=== PATIENT | male | born 1995 | race Caucasian/White ===

== ENCOUNTER 2018-01-13 21:20 | Emergency (ER) | payer OTHER ==
[2018-01-13 21:45] LABS: PLATELET COUNT 302 10^3/uL (150-400)
[2018-01-13] MEDS ORDERED: KETOROLAC 30 MG/1 ML SDV IVP ONE (21:53)
[2018-01-13] MEDS ORDERED: NS 1,000 ML IV ONE (21:53)
[2018-01-13] MEDS ORDERED: ONDANSETRON 4 MG/2 ML VIAL IVP ONE (21:53)
[2018-01-13] MEDS ORDERED: HYDROmorphONE/DILAUDID 2 MG/ML INJ IVP ONE (21:53)
--- NOTE | 2018-01-13 21:57 | EDPHY ---
H & P Stated Complaint: kidney stones l flank pain Time Seen by Provider: 01/13/18 21:49 HPI/ROS: CHIEF COMPLAINT: Left flank pain HISTORY OF PRESENT ILLNESS: Patient is a 22-year-old man with known kidney stones. He passed a kidney stone in November and followed up with [facility]. They did a CT scan at that time he told me had another stone on his left side that had not yet passed. About 2 hr ago he began experiencing significant left flank pain radiating to his groin. He states that this feels exactly similar to his previous kidney stone accept the other side. No fevers. No vomiting but has been slightly nauseous. No diarrhea. No rash. No testicular pain. No discharge. No urinary symptoms. REVIEW OF SYSTEMS: Constitutional: denies: chills, fever, recent illness, recent injury EENTM: denies: blurred vision, double vision, nose congestion Respiratory: denies: cough, shortness of breath Cardiac: denies: chest pain, irregular heart rate, lightheadedness, palpitations Gastrointestinal/Abdominal: denies: abdominal pain, diarrhea, nausea, vomiting, blood streaked stools Genitourinary: See HPI Musculoskeletal: denies: joint pain, muscle pain Skin: denies: lesions, rash, jaundice, bruising Neurological: denies: headache, numbness, paresthesia, tingling, dizziness, weakness Hematologic/Lymphatic: denies: blood clots, easy bleeding, easy bruising Immunologic/allergic: denies: HIV/AIDS, transplant EXAM: GENERAL: Well-appearing, well-nourished and in no acute distress. HEAD: Atraumatic, normocephalic. EYES: Pupils equal round and reactive to light, extraocular movements intact, sclera anicteric, conjunctiva are normal. ENT: TMs normal, nares patent, oropharynx clear without exudates. Moist mucous membranes. NECK: Normal range of motion, supple without lymphadenopathy or JVD. LUNGS: Breath sounds clear to auscultation bilaterally and equal. No wheezes rales or rhonchi. HEART: Regular rate and rhythm without murmurs, rubs or gallops. ABDOMEN: Soft, nontender, normoactive bowel sounds. No guarding, no rebound. No masses appreciated. BACK: Left CVA pain, no tenderness, no spinal tenderness, step-offs or deformities EXTREMITIES: Normal range of motion, no pitting or edema. No clubbing or cyanosis. NEUROLOGICAL: Cranial nerves II through XII grossly intact. Normal speech, normal gait. 5/5 strength, normal movement in all extremities, normal sensation PSYCH: Normal mood, normal affect. SKIN: Warm, dry, normal turgor, no visible rashes or lesions. Source: Patient Exam Limitations: No limitations - Personal History Current Tetanus/Diphtheria Vaccine: Yes Current Tetanus Diphtheria and Acellular Pertussis (TDAP): Yes - Medical/Surgical History Hx Asthma: No Hx Chronic Respiratory Disease: No Hx Diabetes: No Hx Cardiac Disease: No Hx Renal Disease: No Hx Cirrhosis: No Hx Alcoholism: No Hx HIV/AIDS: No Hx Splenectomy or Spleen Trauma: No Other PMH: kidney stones - Family History Significant Family History: No pertinent family hx - Social History Smoking Status: Current some day smoker Alcohol Use: Sober Drug Use: None Constitutional: Initial Vital Signs Temperature (C) 36.4 C 01/13/18 21:22 Heart Rate 86 01/13/18 21:22 Respiratory Rate 20 01/13/18 21:22 Blood Pressure 119/83 H 01/13/18 21:22 O2 Sat (%) 100 01/13/18 21:22 O2 Delivery Mode Room Air Allergies/Adverse Reactions: No Known Allergies Allergy (Unverified 01/13/18 21:21) Home Medications: Medication Instructions Recorded Hydrocodone/APAP 5/325 [Sanford 1 - 2 tab PO Q4H PRN #10 tab 01/13/18 5/325] Ketorolac Tromethamine 10 mg PO Q6H PRN #16 tab 01/13/18 Lexapro 01/13/18 Ondansetron Odt [Zofran Odt 4 mg 4 mg PO Q4 PRN #20 tab 01/13/18 (RX)] Tamsulosin HCl [Flomax] 0.4 mg PO DAILY #10 cap 01/13/18 Medical Decision Making ED Course/Re-evaluation: 10:35 p.m. the patient refuses pain medication. He thinks that his stone has passed. He is able to urinate. He is eager to go home. I will give him a take -home medications in case his pain returns. He will follow up with Urology in the next few days. Differential Diagnosis: Partial list of the Differential diagnosis considered include but were not limited to; kidney stone, urinary tract infection and although unlikely based on the history and physical exam, I also considered dissection, aneurysm, abscess, diverticulitis. I discussed these differential diagnoses and the plan with the patient as well as the usual and expected course. The patient understands that the diagnosis is provisional and that in medicine we are not always correct and that further workup is often warranted. Usual and customary warnings were given. All of the patient's questions were answered. The patient was instructed to return to the emergency department should the symptoms at all worsen or return, otherwise to followup with the physician as we discussed. - Data Points Laboratory Results: Laboratory Results 01/13/18 21:35 01/13/18 21:35 Medications Given: Discontinued Medications Hydrocodone Bitart/Acetaminophen (Sanford 5/325mg Prepack#6) 1 btl TAKEHOME EDNOW ONE Stop: 01/13/18 22:41 Last Admin: 01/13/18 22:51 Dose: 1 btl Hydromorphone HCl (Dilaudid) 0.5 mg IVP EDNOW ONE Stop: 01/13/18 21:54 Last Admin: 01/13/18 22:01 Dose: Not Given Sodium Chloride (Ns) 1,000 mls @ 0 mls/hr IV EDNOW ONE; Wide Open PRN Reason: Protocol Stop: 01/13/18 21:54 Last Admin: 01/13/18 21:58 Dose: 1,000 mls Ketorolac Tromethamine (Toradol) 15 mg IVP EDNOW ONE Stop: 01/13/18 21:54 Last Admin: 01/13/18 21:59 Dose: 15 mg Ondansetron HCl (Zofran) 4 mg IVP EDNOW ONE Stop: 01/13/18 21:54 Last Admin: 01/13/18 21:59 Dose: 4 mg Ondansetron HCl (Zofran Odt 4 Mg Prepack#2) 1 btl TAKEHOME EDNOW ONE Stop: 01/13/18 22:41 Last Admin: 01/13/18 22:50 Dose: 1 btl Departure - Departure Disposition: Home, Routine, Self-Care Clinical Impression: Calculus of left kidney Condition: Fair Instructions: Hydrocodone/Acetaminophen (By mouth), Ondansetron (By mouth), Kidney Stones (ED) Referrals: NONE *PRIMARY CARE P,. [Primary Care Provider] - As per Instructions Prescriptions: Hydrocodone/APAP 5/325 [Sanford 5/325] 1 - 2 tab PO Q4H PRN #10 tab PRN Reason: Pain, Moderate Ketorolac Tromethamine 10 mg PO Q6H PRN #16 tab PRN Reason: Pain/inflammation Ondansetron Odt [Zofran Odt 4 mg (RX)] 4 mg PO Q4 PRN #20 tab PRN Reason: Nausea & Vomiting Tamsulosin HCl [Flomax] 0.4 mg PO DAILY #10 cap
[2018-01-13] MEDS ORDERED: ONDANSETRON 4MG PREPACK#2 BTL TAKEHOME ONE (22:40)
[2018-01-13] MEDS ORDERED: HYDROCOD/APAP 5/325 PREPACK#6 BTL TAKEHOME ONE (22:40)
[2018-01-13 22:56] VITALS: BP 116/56
== END 2018-01-13 22:54 | disposition home or self-care (01) ==
DX: N20.0 Calculus of kidney (principal); E86.9 Volume depletion, unspecified; F17.200 Nicotine dependence, unspecified, uncomplicated
CPT/HCPCS: 82365-90; 96374; J1170; J1885; J2405